=== PATIENT | male | born 1975 | race Caucasian/White ===

== ENCOUNTER → 2021-05-16 | Outpatient (CLI) | payer SELFPAY | END | disposition home or self-care (01) | LOC: LAB SHORT 19:24 | DX: R30.9 Painful micturition, unspecified (principal) | CPT/HCPCS: 87086 ==

== ENCOUNTER → 2021-10-31 | Outpatient (CLI) | payer OTHER ==
[~2021-10-31] MED LIST: CLONAZEPAM1 MG PO; Celexa20 MG PO; ESCI20 PO; Klonopin1 MG PO; Lexapro 2020 MG PO
== END | disposition home or self-care (01) ==
LOC: LAB SHORT 18:03
DX: N48.1 Balanitis (principal)
CPT/HCPCS: 87070; 87205

== ENCOUNTER 2022-02-17 17:55 | Emergency (ER) | payer OTHER ==
[~2022-02-17] VITALS: Ht 182.9 cm; Wt 83.9 kg
[2022-02-17] MEDS ORDERED: ESCI20 PO (18:00)
[2022-02-17] MEDS ORDERED: CLONAZEPAM1 MG PO (18:00)
[2022-02-17] MEDS ORDERED: Celexa20 MG PO (18:01)
[2022-02-17] MEDS ORDERED: Klonopin1 MG PO ×2 (18:01→18:07)
[2022-02-17] MEDS ORDERED: Lexapro 2020 MG PO (18:07)
== END 2022-02-17 18:12 | disposition home or self-care (01) ==
LOC: ER 17:55
DX: Z76.0 Encounter for issue of repeat prescription (principal); Z79.899 Other long term (current) drug therapy
CPT/HCPCS: 99281

== ENCOUNTER 2022-03-31 22:09 | Emergency (ER) | payer OTHER ==
[~2022-03-31] VITALS: Ht 182.9 cm; Wt 83.9 kg
== END 2022-03-31 23:45 | disposition home or self-care (01) ==
LOC: ER 22:09
DX: H10.213 Acute toxic conjunctivitis, bilateral (principal); Z79.899 Other long term (current) drug therapy
CPT/HCPCS: A9270

== ENCOUNTER 2023-01-01 09:39 | Emergency (ER) | payer OTHER ==
[~2023-01-01] VITALS: Ht 182.9 cm; Wt 86.2 kg
[2023-01-01 10:13] VITALS: BP 102/70
[2023-01-01 11:10] LABS: Source, Urine Clean Catch
[2023-01-01 11:15] LABS: Appearance, Urine Clear (Clear); Bilirubin, Urine Neg (Neg); Blood, Urine Neg (Neg); Color, Urine Yellow (P-Yellow); Glucose Qualitative, Urine Neg (Neg); Ketones, Urine Neg (Neg); Leukocyte Esterase, Urine Neg (Neg); Nitrite, Urine Neg (Neg); Protein, Urine 2+ (Neg); Urobilinogen, Urine NORM (Normal)
[2023-01-01 11:26] LABS: Bacteria Rare /hpf; Calcium Oxalate Crystals Few /hpf; Mucus Light (0-Heavy); Red Blood Cells, Urine Not Seen /hpf (0-2); Squamous Epithelial Cells Rare /hpf (Few); White Blood Cells, Urine 0-2 /hpf (0-5)
== END 2023-01-01 13:33 | disposition home or self-care (01) ==
LOC: ER 09:39
PROVIDERS: Physician Assistant
DX: Z00.8 Encounter for other general examination (principal); Z88.8 Allergy status to other drugs, medicaments and biological substances; Z79.899 Other long term (current) drug therapy
CPT/HCPCS: 81001

== ENCOUNTER → 2023-09-16 | Outpatient (CLI) | payer OTHER ==
[~2023-09-16] MED LIST changes: +MORP15ER PO; +ONDA4ODT MM
[2023-09-19 09:52] LABS: HIV 1,2 COMBO ANTIGEN/ANTIBODY Negative (Negative)
[2023-09-19 10:19] LABS: HEPATITIS C AB CIA INTERP Negative (Negative); HEPATITIS C ANTIBODY CIA INDEX 0.11 IV
[2023-09-19 14:45] LABS: APTIMA MEDIA TYPE Urine; C. TRACHOMATIS BY TMA Negative (Negative); N. GONORRHOEAE BY TMA Negative (Negative); SPECIMEN SOURCE Urine; T. VAGINALIS BY TMA Negative (Negative)
== END | disposition home or self-care (01) ==
LOC: LAB SHORT 18:50 → LAB 18:50
PROVIDERS: Student in an Organized Health Care Education/Training Program
DX: Z11.3 Encounter for screening for infections with a predominantly sexual mode of transmission (principal)
CPT/HCPCS: 86592; 86803; 87070; 87205; 87389; 87491; 87591; 87661